=== PATIENT | male | born 1990 | race Caucasian/White ===

== ENCOUNTER 2019-06-17 19:53 | Emergency (ER) | payer BC ==
[~2019-06-17] VITALS: Ht 182.9 cm; Wt 102.3 kg
[2019-06-17] MEDS ORDERED: COZAAR 50MG50 MG/TAB PO (20:02)
[2019-06-17] MEDS ORDERED: ZOLOFT 50MG50 MG PO (20:02)
[2019-06-17] MEDS ORDERED: ADDERALL 10 MG10 MG PO (20:02)
[2019-06-17] MEDS ORDERED: EPIPEN 2-PAK1 MG/ML MR (21:00)
[2019-06-17 21:12] VITALS: BP 133/74
== END 2019-06-17 21:18 | disposition home or self-care (01) ==
LOC: ED 19:53 → EDBD 20:26 → ED 20:26
DX: T78.2XXA Anaphylactic shock, unspecified, initial encounter (principal); I10 Essential (primary) hypertension; F90.9 Attention-deficit hyperactivity disorder, unspecified type; F32.9 Major depressive disorder, single episode, unspecified
CPT/HCPCS: J0171

== ENCOUNTER → 2022-04-09 | Outpatient (CLI) | payer OTHER ==
[~2022-04-09] MED LIST: ADDERALL 10 MG10 MG PO; COZAAR 50MG50 MG/TAB PO; EPIPEN 2-PAK1 MG/ML MR; ZOLOFT 50MG50 MG PO
== END ==
LOC: RAD 17:27
DX: S92.511A Displaced fracture of proximal phalanx of right lesser toe(s), initial encounter for closed fracture (principal); M87.874 Other osteonecrosis, right foot; X58.XXXA Exposure to other specified factors, initial encounter